=== PATIENT | male | born 1975 | race Caucasian/White ===

== ENCOUNTER 2018-10-01 07:17 | Emergency (ER) | payer OTHER ==
--- OUTSIDE RECORDS SUMMARY | 2018-10-01 07:32 | XMS REPORT ---
:1975 Author Organization eClinicalWorks Care Team Providers Name Role Phone Kevin Duranh Provider Role Unavailable Allergies, Adverse Reactions, Alerts Substance Reaction Event Type N.K.D.A. Info Not Available Non Drug Allergy Problems Problem Type Condition Code Onset Dates Condition Status Assessment Family history of premature CAD Z82.49 Active Assessment Mixed hyperlipidemia E78.2 Active Assessment Prediabetes R73.03 Active Problem Allergic rhinitis, unspecified J30.9 Active seasonality, unspecified trigger Problem Decreased hearing of both ears H91.93 Active Problem Mixed hyperlipidemia E78.2 Active Assessment Migraine without aura and without G43.009 Active status migrainosus, not intractable Assessment Allergic rhinitis, unspecified J30.9 Active seasonality, unspecified trigger Problem Migraine without aura and without G43.009 Active status migrainosus, not intractable Medications Medication Code Code Instructions Start End Status Dosage System Date Date Flonase [facility] 00892688678 50 MCG/ACT Active 1 spray in Nasally Once a each day nostril Multivitamin [facility] 39508-[address] - Orally Active as directed Results No Known Results Summary Purpose eClinicalWorks Submission
--- OUTSIDE RECORDS SUMMARY | 2018-10-01 07:32 | XMS REPORT ---
:1975 Author Organization eClinicalWorks Care Team Providers Name Role Phone Roger [facility] Care Provider Role Unavailable Allergies No Known Allergies Problems Problem Type Condition Code Onset Dates Condition Status Problem Allergic rhinitis, unspecified J30.9 Active seasonality, unspecified trigger Problem Decreased hearing of both ears H91.93 Active Problem Mixed hyperlipidemia E78.2 Active Problem Migraine without aura and without G43.009 Active status migrainosus, not intractable Medications No Known Medications Results No Known Results Summary Purpose eClinicalWorks Submission
--- OUTSIDE RECORDS SUMMARY | 2018-10-01 07:32 | XMS REPORT ---
:1975 Author Organization eClinicalWorks Care Team Providers Name Role Phone Duran, [facility] Provider Role Unavailable Allergies, Adverse Reactions, Alerts Substance Reaction Event Type N.K.D.A. Info Not Available Non Drug Allergy Problems Problem Type Condition Code Onset Dates Condition Status Problem Migraine without aura and without G43.009 Active status migrainosus, not intractable Problem Decreased hearing of both ears H91.93 Active Assessment Migraine without aura and without G43.009 Active status migrainosus, not intractable Assessment Perforation of left tympanic H72.92 Active membrane Assessment Decreased hearing of both ears H91.93 Active Medications Medication Code Code Instructions Start End Status Dosage System Date Date Amoxicillin NDC 48604905016 125 MG/5ML Active 10 ml Orally every 8 hrs Toradol NDC 0 10 MG Orally Q6H Active not defined PRN Pain Multivitamin NDC 65708-93401 - Orally Active as directed Results No Known Results Summary Purpose [employer]Clinical[employer]AreHolidays Submission
--- OUTSIDE RECORDS SUMMARY | 2018-10-01 07:32 | XMS REPORT ---
:1975 Author Organization eClinicalWorks Care Team Providers Name Role Phone Dheeraj Duran Provider Role Unavailable Allergies, Adverse Reactions, Alerts Substance Reaction Event Type N.K.D.A. Info Not Available Non Drug Allergy Problems Problem Type Condition Code Onset Dates Condition Status Problem Allergic rhinitis, unspecified J30.9 Active seasonality, unspecified trigger Problem Decreased hearing of both ears H91.93 Active Problem Mixed hyperlipidemia E78.2 Active Assessment Acute non-recurrent maxillary J01.00 Active sinusitis Assessment Upper respiratory tract infection, J06.9 Active unspecified type Problem Migraine without aura and without G43.009 Active status migrainosus, not intractable Medications Medication Code Code Instructions Start End Date Status Dosage System Date Flonase [facility] 61777543949 50 MCG/ACT Active 1 spray in Nasally Once a each day nostril Multivitamin [facility] 78[address] - Orally Active as directed Azithromycin [facility] 88867465079 250 MG Orally August Active 2 tablets Once a day 2018 on the first day, then 1 tablet daily for 4 days Results Name Result Date Reference Range Unit Abnormality Flag STREP A RAPID ----Result Neg [id number] FLU TEST A/B ----B neg [id number] ----A Neg [id number] Summary Purpose eClinicalWorks Submission
--- OUTSIDE RECORDS SUMMARY | 2018-10-01 07:32 | XMS REPORT | Clinical Summary ---
:1975 Author Organization [facility] Address [address] [place] [address] Care Team Providers Name Role Phone Dheeraj Duran DO Primary Care Provider Allergies No Known Allergies Medications Medication Sig Dispensed Refills Start Date End Date Status amoxicillin-clavul Take 1 tablet 0 11/26/2017 01/02/2018 Discontinued anate (AUGMENTIN) by mouth 2 875-125 mg per (two) times tablet daily . Active Problems Problem Noted Date Sensorineural hearing loss (SNHL) of both ears 12/07/2017 Encounters Date Type Specialty Care Team Description 01/02/2018 Office Visit Otolaryngology Flako Ramirez Sensorineural hearing loss (SNHL) of both ears (Primary Dx); MD [place] Perforation of left tympanic membrane 12/07/2017 Office Visit Otolaryngology Flako Ramirez Perforated tympanic membrane, left (Primary Dx); MD [place] Sensorineural hearing loss (SNHL) of both ears 12/07/2017 Telephone Otolaryngology Flako Ramirez Results MD [place] after 09/30/2017 Family History Medical History Relation Name Comments High blood pressure Brother High blood pressure Father Stroke Father Stroke Maternal Grandfather Stroke Maternal Grandmother High blood pressure Mother Relation Name Status Comments Brother Father Maternal Grandfather Maternal Grandmother Mother Social History Tobacco Use Types Packs/Day Years Used Date Never Smoker Smokeless Tobacco: Never Used Alcohol Use Drinks/Week oz/Week Comments No Sex Assigned at Date Recorded Not on file Job Start Date Occupation Industry Not on file Not on file Not on file Travel History Travel Start Travel End No recent travel history available. Last Filed Vital Signs Vital Sign Reading Time Taken Blood Pressure 136/100 01/02/2018 10:04 AM CDT Pulse 62 01/02/2018 10:04 AM CDT Temperature - - Respiratory Rate - - Oxygen Saturation - - Inhaled Oxygen Concentration - - Weight 87.5 kg (193 lb) 01/02/2018 10:04 AM CDT Height 175.3 cm (5' 9") 01/02/2018 10:04 AM CDT Body Mass Index 28.5 01/02/2018 10:04 AM CDT Plan of Treatment Not on file Results Not on fileafter 09/30/2017 Insurance Payer Benefit Plan / Group Subscriber ID Type Phone Address [place] xxxxxxxxxxx
--- OUTSIDE RECORDS SUMMARY | 2018-10-01 07:32 | XMS REPORT ---
[...] hearing of both ears H91.93 Active Assessment Encounter for preventative adult Z00.00 Active health care examination Assessment Need for Tdap vaccination Z23 Active Medications Medication Code Code Instructions Start End Status Dosage System Date Date Multivitamin [facility] 91191-[address]89 - Orally Active as directed Flonase [facility] 64322508344 50 MCG/ACT Active 1 spray in Nasally Once a each day nostril Results No Known Results Immunizations Vaccine Administration Date TDAP > 7 Years-Adacel Feb 06, 2018 Summary Purpose eClinicalWorks Submission
--- NOTE | 2018-10-01 07:41 | ER ---
Nurse's Notes [facility] Name: Rajan Michelle Age: 43 yrs Sex: Male : 1975 Arrival Date: 10/01/2018 Time: 07:20 Bed 20 Private MD: Diagnosis: Urticaria, unspecified;Dermatitis, unspecified Presentation: 10/01 07:28 Presenting complaint: Patient states: guerline been to a recent trip to [facility] for 10 hj days, when i came back i started noticing rash on my L upper arm, itchy, i applied cream and it went away, the rash came back and now its on my chest area, my back and its painful now; denies fever and chills; denies blood dyscrasias;. Transition of care: patient was not received from another setting of care. Onset of symptoms was October 01, 2018. Risk Assessment: Do you want to hurt yourself or someone else? Patient reports no desire to harm self or others. Initial Sepsis Screen: Does the patient meet any 2 criteria? No. Patient's initial sepsis screen is negative. Does the patient have a suspected source of infection? No. Patient's initial sepsis screen is negative. Care prior to arrival: None. 07:28 Method Of Arrival: Ambulatory 07:28 Acuity: NESHA 4 hj Triage Assessment: 07:32 General: Appears in no apparent distress. uncomfortable, Behavior is calm, cooperative, hj appropriate for age. Pain: Complains of pain in on affected areas. Historical: - Allergies: 07:31 No Known Allergies; hj - Home Meds: 07:31 None [Active]; hj - PMHx: 07:31 Kidney stones; Migraines; - PSHx: 07:31 Appendectomy; hj - Immunization history:: Adult Immunizations up to date. - Social history:: Smoking status: Patient/guardian denies using tobacco, Patient/guardian denies using alcohol. - Ebola Screening: : Patient negative for fever greater than or equal to 101.5 degrees Fahrenheit, and additional compatible Ebola Virus Disease symptoms Patient denies exposure to infectious person Patient denies travel to an Ebola-affected area in the 21 days before illness onset. - Family history:: not pertinent. - Hospitalizations: : No recent hospitalization is reported. Screenin:31 Abuse screen: Denies threats or abuse. Denies injuries from another. Nutritional hj screening: No deficits noted. Tuberculosis screening: No symptoms or risk factors identified. Fall Risk None identified. Assessment: 07:32 General: Appears in no apparent distress. uncomfortable, Behavior is calm, cooperative, hj appropriate for age. Pain: Complains of pain in affected areas. Neuro: Level of Consciousness is awake, alert, obeys commands, Oriented to person, place, time, situation, Appropriate for age. Cardiovascular: Capillary refill < 3 seconds Patient's skin is warm and dry. Respiratory: Airway is patent Respiratory effort is even, unlabored, Respiratory pattern is regular, symmetrical. GI: GI: Abdomen is non-distended, Bowel sounds present X 4 quads. : No signs and/or symptoms were reported regarding the genitourinary system. EENT: No signs and/or symptoms were reported regarding the EENT system. Derm: Reports itching, pain. Musculoskeletal: No signs and/or symptoms reported regarding the musculoskeletal system. 07:48 Reassessment: medicated; awaiting D/C papers;. hj Vital Signs: 07:31 BP 146 / 95; Pulse 52; Resp 18; Temp 97.8(O); Pulse Ox 100% on R/A; Weight 80.92 kg; hj Height 5 ft. 9 in. (175.26 cm); 08:04 BP 135 / 89; Pulse 60; Resp 18; Pulse Ox 100% on R/A; hj 07:31 Body Mass Index 26.34 (80.92 kg, 175.26 cm) hj ED Course: 07:20 Patient arrived in ED. as 07:22 Noel Huerta MD is Attending Physician. rn 07:28 Rodger Agustin RN is Primary Nurse. hj 07:30 Triage completed. hj 07:32 Arm band placed on right wrist. hj 07:32 Patient has correct armband on for positive identification. Bed in low position. Call hj light in reach. Side rails up X 1. Adult w/ patient. 08:03 No provider procedures requiring assistance completed. Patient did not have IV access hj during this emergency room visit. Administered Medications: 07:40 Drug: SOLU-Medrol 125 mg Route: IM; Site: right deltoid; hj 08:03 Follow up: Response: No adverse reaction hj Outcome: 07:40 Discharge ordered by . rn 08:03 Discharged to home ambulatory, with family. hj 08:03 Condition: stable 08:03 Discharge instructions given to patient, family, Instructed on discharge instructions, follow up and referral plans. medication usage, Demonstrated understanding of instructions, follow-up care, medications, Prescriptions given X 1. 08:04 Patient left the ED. mike Signatures: Gisella Meyer Roman, MD MD rn Joaquin, Henry, RN RN hj Corrections: (The following items were deleted from the chart) 07:40 07:31 BP 146 / 95; Pulse 52bpm; Resp 18bpm; Pulse Ox 100% RA; Temp 97.8F Oral; mike mckeon
--- NOTE | 2018-10-01 07:41 | EDPHYS ---
Physician Documentation [facility] Name: Rajan Michelle Age: 43 yrs Sex: Male : 1975 Arrival Date: 10/01/2018 Time: 07:20 Bed 20 Private MD: ED Physician Noel Huerta HPI: 10/01 07:35 This 43 yrs old Male presents to ER via Ambulatory with complaints of Rash. rn 07:35 The patient's rash thought to be caused by an unknown cause. The rash is located on the rn back, abdomen and left arm. The rash can be described as raised, urticarial. Onset: The symptoms/episode began/occurred 1 month(s) ago. Severity of symptoms: At their worst the symptoms were mild in the emergency department the symptoms are unchanged. The patient has not experienced similar symptoms in the past. The patient has not recently seen a physician. REports went on mission trip to [facility] [place], returned with itchy rash to arms and trunk, went away with topical steroid cream, but has been intermittent and mobile, improved with benadryl, no known allergies or exposure. Reports friend gets similar rash on trip and told him about steroid cream. Worse with hot shower. . Historical: - Allergies: 07:31 No Known Allergies; hj - Home Meds: 07:31 None [Active]; hj - PMHx: 07:31 Kidney stones; Migraines; hj - PSHx: 07:31 Appendectomy; hj - Immunization history:: Adult Immunizations up to date. - Social history:: Smoking status: Patient/guardian denies using tobacco, Patient/guardian denies using alcohol. - Ebola Screening: : Patient negative for fever greater than or equal to 101.5 degrees Fahrenheit, and additional compatible Ebola Virus Disease symptoms Patient denies exposure to infectious person Patient denies travel to an Ebola-affected area in the 21 days before illness onset. - Family history:: not pertinent. - Hospitalizations: : No recent hospitalization is reported. ROS: 07:35 Constitutional: Negative for fever, chills, and weight loss, Eyes: Negative for injury, rn pain, redness, and discharge, Neck: Negative for injury, pain, and swelling, Cardiovascular: Negative for chest pain, palpitations, and edema, Respiratory: Negative for shortness of breath, cough, wheezing, and pleuritic chest pain, Abdomen/GI: Negative for abdominal pain, nausea, vomiting, diarrhea, and constipation, MS/Extremity: Negative for injury and deformity, Skin: + rash Neuro: Negative for headache, weakness, numbness, tingling, and seizure. Exam: 07:35 Constitutional: This is a well developed, well nourished patient who is awake, alert, rn and in no acute distress. Head/Face: Normocephalic, atraumatic. Eyes: Pupils equal round and reactive to light, extra-ocular motions intact. Lids and lashes normal. Conjunctiva and sclera are non-icteric and not injected. Cornea within normal limits. Periorbital areas with no swelling, redness, or edema. ENT: MMM, no oral swelling Respiratory: No increased work of breathing, no retractions or nasal flaring. Skin: + several crops of urticarial lesions, bilateral and do not follow pattern, left and right trunk, abdomen, left arm. No bullae, no skin sloughing, + excoriations, no target lesions or purpura Vital Signs: 07:31 BP 146 / 95; Pulse 52; Resp 18; Temp 97.8(O); Pulse Ox 100% on R/A; Weight 80.92 kg; Height 5 ft. 9 in. (175.26 cm); 08:04 BP 135 / 89; Pulse 60; Resp 18; Pulse Ox 100% on R/A; hj 07:31 Body Mass Index 26.34 (80.92 kg, 175.26 cm) MDM: 07:22 Patient medically screened. rn 07:35 Differential diagnosis: allergic reaction, urticaria, contact dermatitis. Data rn reviewed: vital signs, nurses notes, and as a result, I will discharge patient. Counseling: I had a detailed discussion with the patient and/or guardian regarding: the historical points, exam findings, and any diagnostic results supporting the discharge/admit diagnosis, the need for outpatient follow up, to return to the emergency department if symptoms worsen or persist or if there are any questions or concerns that arise at home. Special discussion: I discussed with the patient/guardian in detail that at this point there is no indication for admission to the hospital. It is understood, however, that if the symptoms persist or worsen the patient needs to return immediately for re-evaluation. 07:39 Special discussion: Based on the history and exam findings, there is no indication for rn further emergent testing or inpatient evaluation. I discussed with the patient/guardian the need to see the production recorder for further evaluation of the symptoms. I discussed with the patient/guardian the need to see the concrete laborer for further evaluation of the symptoms. Administered Medications: 07:40 Drug: SOLU-Medrol 125 mg Route: IM; Site: right deltoid; hj 08:03 Follow up: Response: No adverse reaction hj Disposition: 10/01/18 07:40 Discharged to Home. Impression: Urticaria, unspecified, Dermatitis, unspecified. - Condition is Stable. - Discharge Instructions: Rash. - Prescriptions for Medrol (Elie) 4 mg Oral Tablets, Dose Pack - take 1 tablet by ORAL route as directed - follow package instructions; 1 packet. - Medication Reconciliation Form, Thank You Letter, Antibiotic Education, Prescription Opioid Use form. - Follow up: Private Physician; When: As needed; Reason: Recheck today's complaints, Re-evaluation by your physician. - Problem is an ongoing problem. - Symptoms are unchanged. Signatures: Noel Huerta MD MD rn Joaquin, Henry, RN RN Corrections: (The following items were deleted from the chart) 08:04 07:40 10/01/2018 07:40 Discharged to Home. Impression: Urticaria, unspecified; hj Dermatitis, unspecified. Condition is Stable. Forms are Medication Reconciliation Form, Thank You Letter, Antibiotic Education, Prescription Opioid Use. Follow up: Private Physician; When: As needed; Reason: Recheck today's complaints, Re-evaluation by your physician. Problem is an ongoing problem. Symptoms are unchanged. rn
[2018-10-01] MEDS ORDERED: METHYLPREDNISOLONE 125 MG INJ ONE (07:57)
== END 2018-10-01 08:04 | disposition home or self-care (01) ==
LOC: ER 07:17
DX: L50.9 Urticaria, unspecified (principal); L30.9 Dermatitis, unspecified
CPT/HCPCS: 96372; 99283; J2930

== ENCOUNTER 2018-11-21 21:25 | Emergency (ER) | payer OTHER, SELFPAY ==
--- OUTSIDE RECORDS SUMMARY | 2018-11-21 21:28 | XMS REPORT ---
:1975 Author Organization eClinicalWorks Care Team Providers Name Role Phone Duran, [facility] Provider Role Unavailable Allergies, Adverse Reactions, Alerts [...] Status Dosage System Date Date Amoxicillin NDC 50807095754 125 MG/5ML Active 10 ml Orally every 8 hrs Toradol NDC 0 10 MG Orally Q6H Active not defined PRN Pain Multivitamin NDC 17118-09710 - Orally Active as directed Results No Known Results Summary Purpose eClinicalSiteJabber Submission
--- OUTSIDE RECORDS SUMMARY | 2018-11-21 21:28 | XMS REPORT ---
[...] End Status Dosage System Date Date Flonase [facility] 70370028076 50 MCG/ACT Active 1 spray in Nasally Once a each day nostril Multivitamin [facility] [address] - Orally Active as directed Results No Known Results Summary Purpose eClinicalWorks Submission
--- OUTSIDE RECORDS SUMMARY | 2018-11-21 21:28 | XMS REPORT ---
[...] End Date Status Dosage System Date Flonase [facility] 32083209019 50 MCG/ACT Active 1 spray in Nasally Once a each day nostril Multivitamin [facility] [address]4870-[address] - Orally Active as directed Azithromycin [facility] 77698206984 250 MG Orally August Active 2 tablets Once a day 2018 on the first day, then 1 tablet daily for 4 days Results Name Result Date Reference Range Unit Abnormality Flag STREP A RAPID ----Result Neg [id number] FLU TEST A/B ----B neg [id number] ----A Neg [id number] Summary Purpose eClinicalWorks Submission
--- OUTSIDE RECORDS SUMMARY | 2018-11-21 21:28 | XMS REPORT ---
:1975 Author Organization eClinicalWorks Care Team Providers Name Role Phone Roger [facility] Provider Role Unavailable Allergies No Known Allergies [...]
--- OUTSIDE RECORDS SUMMARY | 2018-11-21 21:28 | XMS REPORT ---
[...] End Status Dosage System Date Date Multivitamin [facility] [address] - Orally Active as directed Flonase [facility] 50288902668 50 MCG/ACT Active 1 spray in Nasally Once a each day nostril Results No Known Results Immunizations Vaccine Administration Date TDAP > 7 Years-Adacel Feb 06, 2018 Summary Purpose eClinicalWorks Submission
--- OUTSIDE RECORDS SUMMARY | 2018-11-21 21:28 | XMS REPORT | Clinical Summary ---
:1975 Author Organization [facility] Address [address] [place] [address] Care Team Providers Name Role Phone Dheeraj [...] Otolaryngology Flako Ramirez Results MD [place] after 11/20/2017 Family History Medical History Relation Name Comments [...] Not on file Results Not on fileafter 11/20/2017 Insurance Payer Benefit Plan / Group Subscriber ID Type Phone Address [place] xxxxxxxxxxx
[2018-11-21 22:07] LABS: Urine Blood NEGATIVE (NEG); Urine Glucose NEGATIVE (NEG); Urine Protein TRACE (NEG); Urine pH 7.5 (5.0-7.0)
--- NOTE | 2018-11-22 00:10 | ER ---
Nurse's Notes [facility] Name: Rajan Michelle Age: 43 yrs Sex: Male : 1975 Arrival Date: 11/21/2018 Time: 21:29 Bed 8 Private MD: Diagnosis: Urethritis and urethral syndrome Presentation: 11/21 21:39 Presenting complaint: Patient states: right lower abd pain, right flank pain, right ak1 scrotal pain X1.5 weeks [employer]. pt stated he had blood in his sperm after ejaculation. 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 Transition of care: patient was not received from another setting of care. Onset of symptoms is unknown. Risk Assessment: Do you want to hurt yourself or someone else? Patient reports no desire to harm self or others. Initial Sepsis Screen: Does the patient meet any 2 criteria? No. Patient's initial sepsis screen is negative. Does the patient have a suspected source of infection? No. Patient's initial sepsis screen is negative. Care prior to arrival: None. 21:39 Method Of Arrival: Ambulatory ak1 21:39 Acuity: NESHA 3 ak1 Triage Assessment: 21:40 General: Appears in no apparent distress. Behavior is calm, cooperative. ak1 Historical: - Allergies: 21:40 No Known Allergies; ak1 - Home Meds: 21:40 None [Active]; ak1 - PMHx: 21:40 Kidney stones; Migraines; ak1 - PSHx: 21:40 Appendectomy; ak1 - Immunization history:: Adult Immunizations up to date. - Social history:: Smoking status: Patient/guardian denies using tobacco. - Ebola Screening: : No symptoms or risks identified at this time. Screenin:41 Abuse screen: Denies threats or abuse. Denies injuries from another. Nutritional ak1 screening: No deficits noted. Tuberculosis screening: No symptoms or risk factors identified. Fall Risk None identified. Assessment: 21:50 General: Appears in no apparent distress. uncomfortable, Behavior is calm, cooperative, tl2 appropriate for age. Pain: Complains of pain in right testicle and right lower quadrant and right flank. Neuro: Level of Consciousness is awake, alert, obeys commands, Oriented to person, place, time, situation. Respiratory: Airway is patent Respiratory effort is even, unlabored, Respiratory pattern is regular, symmetrical. GI: Bowel sounds present X 4 quads. Reports lower abdominal pain. : Reports blood in sperm after ejaculation. Derm: Skin is pink, warm \T\ dry. 22:31 Reassessment: Patient appears in no apparent distress at this time. Patient and/or tl2 family updated on plan of care and expected duration. Pain level reassessed. Patient is alert, oriented x 3, equal unlabored respirations, skin warm/dry/pink. awaiting US. 23:35 Reassessment: Patient appears in no apparent distress at this time. Patient and/or tl2 family updated on plan of care and expected duration. Pain level reassessed. Patient is alert, oriented x 3, equal unlabored respirations, skin warm/dry/pink. awaiting imaging results. 11/22 00:17 Reassessment: Patient appears in no apparent distress at this time. Patient and/or tl2 family updated on plan of care and expected duration. Pain level reassessed. Patient is alert, oriented x 3, equal unlabored respirations, skin warm/dry/pink. pt verbalized understanding of discharge instructions, need for follow up and prescription usage. Vital Signs: 11/21 21:38 BP 149 / 114; Pulse 64; Resp 16; Temp 98.2(O); Pulse Ox 99% on R/A; Weight 81.65 kg ak1 (R); Height 5 ft. 9 in. (175.26 cm) (R); Pain 0/10; 23:34 BP 128 / 92; Pulse 56; Resp 18; Pulse Ox 100% on R/A; tl2 11/22 00:17 BP 125 / 83; Pulse 64; Resp 18; Pulse Ox 98% on R/A; tl2 11/21 21:38 Body Mass Index 26.58 (81.65 kg, 175.26 cm) ak1 ED Course: 11/21 21:29 Patient arrived in ED. mr 21:31 [facility]C [facility]. kb 21:[address] MD is Attending Physician. kb 21:40 Triage completed. ak1 21:40 Arm band placed on Patient placed in an exam room, on a stretcher, on pulse oximetry, ak1 Patient notified of wait time. 21:41 Patient has correct armband on for positive identification. Placed in gown. Bed in low ak1 position. Call light in reach. Side rails up X 1. Pulse ox on. NIBP on. Door closed. Lights dimmed. Warm blanket given. 21:49 Kita Brito, RN is Primary Nurse. tl2 21:50 Urine collected: clean catch specimen, clear. tl2 22:17 US Scrotum Testicles In Process Unspecified. EDMS 22:55 CT completed. Patient tolerated procedure well. Patient moved to CT via wheelchair. Patient moved back from CT. 23:18 CT Stone Protocol In Process Unspecified. EDMS 07 00:17 No provider procedures requiring assistance completed. Patient did not have IV access tl2 during this emergency room visit. Administered Medications: No medications were administered Outcome: 00:09 Discharge ordered by . kb 00:17 Discharged to home ambulatory, with family. tl2 00:17 Condition: stable 00:17 Discharge instructions given to patient, family, Instructed on discharge instructions, follow up and referral plans. medication usage, Demonstrated understanding of instructions, follow-up care, medications, Prescriptions given X 1. 00:26 Patient left the ED. tl2 Signatures: Dispatcher [employer] EDTN Jaci Renee, RN FLOAT-C RN FLOAT-Ckb StricklandRadha mr Saenz George Yesica Bran RN RN ak1 Kita Brito, RN RN tl2 Corrections: (The following items were deleted from the chart) 11/21 21:51 21:41 GI: ak1 tl2 23:35 23:34 BP 128 / 92; Pulse 56bpm; Resp 18bpm; Pulse Ox 96% RA; tl2 tl2
--- NOTE | 2018-11-22 00:11 | EDPHYS ---
Physician Documentation [facility] Name: Rajan Michelle Age: 43 yrs Sex: Male : 1975 Arrival Date: 11/21/2018 Time: 21:29 Bed 8 Private MD: ED Physician Jake Lane HPI: 11/21 21:37 This 43 yrs old Male presents to ER via Unassigned with complaints of Flank kb Pain. 21:42 The patient complains of pain in the right flank. The pain radiates to the right lower kb quadrant and right testicle. Onset: The symptoms/episode began/occurred 1.5 week(s) ago. Modifying factors: The symptoms are alleviated by nothing. the symptoms are aggravated by nothing. Associated signs and symptoms: The patient has no apparent associated signs or symptoms. Severity of pain: At its worst the pain was mild moderate in the emergency department the pain is unchanged. The patient has experienced similar episodes in the past, several times. The patient has not recently seen a physician. Pt reports right flank, ab and testicular pain for 1.5 weeks. Reports feels like epididymitis that he has had in the past. Historical: - Allergies: 21:40 No Known Allergies; ak1 - Home Meds: 21:40 None [Active]; ak1 - PMHx: 21:40 Kidney stones; Migraines; ak1 - PSHx: 21:40 Appendectomy; ak1 - Immunization history:: Adult Immunizations up to date. - Social history:: Smoking status: Patient/guardian denies using tobacco. - Ebola Screening: : No symptoms or risks identified at this time. ROS: 21:39 Constitutional: Negative for fever, chills, and weight loss, Cardiovascular: Negative kb for chest pain, palpitations, and edema, Respiratory: Negative for shortness of breath, cough, wheezing, and pleuritic chest pain, Back: Negative for injury and pain, MS/Extremity: Negative for injury and deformity, Skin: Negative for injury, rash, and discoloration, Neuro: Negative for headache, weakness, numbness, tingling, and seizure. 21:39 Abdomen/GI: Positive for abdominal pain. 21:39 : Positive for flank pain, testicular pain blood in semen. Exam: 21:39 Constitutional: This is a well developed, well nourished patient who is awake, alert, kb and in no acute distress. Head/Face: Normocephalic, atraumatic. Neck: Trachea midline, no thyromegaly or masses palpated, and no cervical lymphadenopathy. Supple, full range of motion without nuchal rigidity, or vertebral point tenderness. No Meningismus. Chest/axilla: Normal chest wall appearance and motion. Nontender with no deformity. No lesions are appreciated. Cardiovascular: Regular rate and rhythm with a normal S1 and S2. No gallops, murmurs, or rubs. Normal PMI, no JVD. No pulse deficits. Respiratory: Lungs have equal breath sounds bilaterally, clear to auscultation and percussion. No rales, rhonchi or wheezes noted. No increased work of breathing, no retractions or nasal flaring. Abdomen/GI: Soft, non-tender, with normal bowel sounds. No distension or tympany. No guarding or rebound. No evidence of tenderness throughout. Back: No spinal tenderness. No costovertebral tenderness. Full range of motion. Skin: Warm, dry with normal turgor. Normal color with no rashes, no lesions, and no evidence of cellulitis. MS/ Extremity: Pulses equal, no cyanosis. Neurovascular intact. Full, normal range of motion. Neuro: Awake and alert, GCS 15, oriented to person, place, time, and situation. Cranial nerves II-XII grossly intact. Motor strength 5/5 in all extremities. Sensory grossly intact. Cerebellar exam normal. Normal gait. Vital Signs: 21:38 BP 149 / 114; Pulse 64; Resp 16; Temp 98.2(O); Pulse Ox 99% on R/A; Weight 81.65 kg ak1 (R); Height 5 ft. 9 in. (175.26 cm) (R); Pain 0/10; 23:34 BP 128 / 92; Pulse 56; Resp 18; Pulse Ox 100% on R/A; tl2 11/22 00:17 BP 125 / 83; Pulse 64; Resp 18; Pulse Ox 98% on R/A; tl2 11/21 21:38 Body Mass Index 26.58 (81.65 kg, 175.26 cm) ak MDM: 11/21 21:31 Patient medically screened. kb 21:38 Data reviewed: vital signs, nurses notes. Data interpreted: Pulse oximetry: on room air kb is 100 %. Interpretation: normal. 11/22 00:08 Counseling: I had a detailed discussion with the patient and/or guardian regarding: the kb historical points, exam findings, and any diagnostic results supporting the discharge/admit diagnosis, lab results, radiology results, the need for outpatient follow up, a urologist, to return to the emergency department if symptoms worsen or persist or if there are any questions or concerns that arise at home. 11/21 21:48 Order name: Urine Dipstick--Ancillary (enter results); Complete Time: 22:09 ar5 11/21 21:36 Order name: US Scrotum Testicles kb 11/21 21:36 Order name: Urine Dipstick-Ancillary (obtain specimen); Complete Time: 21:49 kb 11/21 22:28 Order name: CT Stone Protocol kb Administered Medications: No medications were administered Disposition: : Co-signature as Attending Physician, Jake Lane MD. Disposition: 11/22/18 00:09 Discharged to Home. Impression: Urethritis and urethral syndrome. - Condition is Stable. - Discharge Instructions: Epididymitis, Urethritis, Adult. - Prescriptions for Doxycycline Hyclate 100 mg Oral Tablet - take 1 tablet by ORAL route every 12 hours; 20 tablet. - Medication Reconciliation Form, Thank You Letter, Antibiotic Education, Prescription Opioid Use form. - Follow up: Emergency Department; When: As needed; Reason: Worsening of condition. Follow up: Private Physician; When: 2 - 3 days; Reason: Recheck today's complaints, Continuance of care, Re-evaluation by your physician. Signatures: Dispatcher [employer] [facility] Jaci Renee, CLAUDIA FLORES-Yesica Baron RN RN ak1 Kita Brito RN RN tl2 Jake Lane MD MD gs Corrections: (The following items were deleted from the chart) 00:26 00:09 11/22/2018 00:09 Discharged to Home. Impression: Urethritis and urethral tl2 syndrome. Condition is Stable. Forms are Medication Reconciliation Form, Thank You Letter, Antibiotic Education, Prescription Opioid Use. Follow up: Emergency Department; When: As needed; Reason: Worsening of condition. Follow up: Private Physician; When: 2 - 3 days; Reason: Recheck today's complaints, Continuance of care, Re-evaluation by your physician. kb
--- NOTE | 2018-11-22 08:23 | RAD REPORT ---
EXAM DESCRIPTION: US - Scrotum Testicles - 11/21/2018 10:17 pm CLINICAL HISTORY: PAIN COMPARISON: No comparisons FINDINGS: The right testicle 3.7 x 2.6 x 2.8 cm. No intratesticular masses or evidence of testicular torsion. The left testicle 3.8 x 2.8 x 2.4 cm. No intratesticular masses or evidence of testicular torsion. Both epididymides are normal in size and appearance. Mild fluid is present in the scrotal sacs bilaterally. IMPRESSION: No acute or worrisome finding.
--- NOTE | 2018-11-22 11:25 | RAD REPORT ---
EXAM DESCRIPTION: Stone Protocol CLINICAL HISTORY: Abd pain;Flank pain COMPARISON: None. TECHNIQUE: CT ABDOMEN PELVIS WITHOUT IV CONTRAST on 11/21/2018 10:28 PM CDT This exam was performed according to our departmental dose-optimization program, which includes autom ated exposure control, adjustment of the mA and/or kV according to patient size and/or use of iterati ve reconstruction technique. FINDINGS: Lower lungs are clear. Abdomen: The liver is normal in appearance. There is no biliary dilatation. Gallbladder is normal in appearance. The pancreas and spleen are normal in appearance. Adrenal glands and right kidney are nor mal. There is a lower pole 4 mm left renal calculus. Abdominal aorta is normal in course and caliber without aneurysm. There is no free air. There is no r etroperitoneal adenopathy. Pelvis: There is no bowel obstruction. Urinary bladder is unremarkable. There is no free fluid. Appen dectomy was performed. Skeleton: There are no acute osseous findings. No suspicious bony lesions. IMPRESSION: Small left renal calculus. No hydronephrosis or acute inflammatory process. Electronically signed by: Geronimo Barlow MD 11/21/2018 11:22 PM CDT Due to temporary technical issues with the PACS/Fluency reporting system, reports are being signed by the in house radiologist as a courtesy to ensure prompt reporting. The interpreting radiologist is f ully responsible for the content of the report.
== END 2018-11-22 00:26 | disposition home or self-care (01) ==
LOC: ER 21:25
DX: N34.2 Other urethritis (principal); N34.3 Urethral syndrome, unspecified
CPT/HCPCS: 74176; 76377; 76870; 81003; 99284